=== PATIENT | male | born 1975 | race Caucasian/White ===

== ENCOUNTER 2024-07-07 16:00 | Inpatient (IN) | payer MEDICARE, OTHER ==
[~2024-07-07] VITALS: Ht 177.8 cm; Wt 111.6 kg
[~2024-07-07 16:00] MED LIST: AMLO10TA80 PO; ATOR40TA70 PO; CARV25TA47 PO; CLON0.1T PO; DIVA-75 PO; DOXA2TAB2 PO; HYDR100T11 PO; METF-414 PO; QUET300T20 PO
[2024-07-07] MEDS ORDERED: CLONIDINE 0.1MG TABLET PO PRN (23:00)
[2024-07-07] MEDS ORDERED: QUETIAPINE FUMARATE 50MG TABLET PO SCH ×2 (23:00→23:15)
[2024-07-07] MEDS ORDERED: ONDANSETRON HCL 4MG/2ML INJ IV PRN (23:00)
[2024-07-07] MEDS ORDERED: ACETAMINOPHEN 325MG TABLET PO PRN (23:00)
[2024-07-07] MEDS ORDERED: LORAZEPAM 0.5MG TABLET PO PRN (23:00)
[2024-07-07] MEDS ORDERED: NALOXONE HCL 0.4MG/ML VIAL IV PRN (23:15)
[2024-07-07] MEDS: QUETIAPINE FUMARATE 200MG TABLET PO SCH (23:16)
[2024-07-07] MEDS: PANTOPRAZOLE 40MG DR TABLET PO SCH (23:16)
[2024-07-08] MEDS: IPRATROPIUM/ALBUTEROL 0.5-3(2.5)MG/3ML NEB HHN SCH
[2024-07-08 06:45] LABS: CALCIUM 8.4 mg/dL (8.7-10.4)
[2024-07-08 06:48] LABS: BASOPHILS % 0.1 % (0.0-2.0); EOSINOPHILS % 0.1 % (0.0-5.0); HEMATOCRIT. 27.5 % (42.0-52.0); HEMOGLOBIN. 8.8 g/dL (14.0-18.0); LYMPHOCYTES % 8.8 % (20.0-50.0); MEAN CORPUSCULAR HEMOGLOBIN 28.5 pg (28.0-32.0); MEAN CORPUSCULAR HGB CONC 32.1 g/dL (31.0-37.0); MEAN CORPUSCULAR VOLUME 88.8 fL (80.0-94.0); MEAN PLATELET VOLUME 8.2 fl (7.4-10.4); MONOCYTES % 10.2 % (2.0-8.0); NEUTROPHILS % 80.8 % (40.0-76.0); PLATELET 229 x1000/uL (130-400); RED CELL DISTRIBUTION WIDTH 15.9 % (11.6-14.6)
[2024-07-08 06:51] LABS: CREATININE 2.8 mg/dL (0.6-1.3)
[2024-07-08] MEDS: DIVALPROEX SODIUM 500MG DR TABLET PO SCH (09:00)
[2024-07-08] MEDS: ATORVASTATIN CALCIUM 40MG TABLET PO SCH (09:00)
[2024-07-08] MEDS: PREDNISONE 20MG TABLET PO SCH (09:00)
[2024-07-08] MEDS: AMLODIPINE 10MG TABLET PO SCH (09:00)
[2024-07-08] MEDS: CARVEDILOL 12.5MG TABLET PO SCH (09:59)
[2024-07-08] MEDS: DOXAZOSIN MESYLATE 2MG TABLET PO SCH (09:59)
[2024-07-08] MEDS: CLONIDINE 0.1MG TABLET PO SCH (09:59)
[2024-07-08] MEDS: HYDRALAZINE HCL 100MG TABLET PO SCH (09:59)
[2024-07-08] MEDS: ENOXAPARIN 40MG/0.4ML SYR SUBCUT SCH (11:00)
[2024-07-08 12:38] VITALS: TEMP 36.78072
[2024-07-08 15:52] VITALS: PULSE 89; RESP 20; O2SAT 94
[2024-07-08] MEDS: HYDROCODONE/ACETAMINOPHEN 5/325MG TABLET PO PRN (15:55)
[2024-07-08 17:07] VITALS: BP 158/83; PULSE 87; RESP 20; O2SAT 98
== END 2024-07-08 20:52 | DRG 469 ==
LOC: ER 16:00 → 5WST 20:03
PROVIDERS: ADMIT Internal Medicine; ATTEND Internal Medicine
DX: N17.9 Acute kidney failure, unspecified (principal); J96.21 Acute and chronic respiratory failure with hypoxia; E11.22 Type 2 diabetes mellitus with diabetic chronic kidney disease; J44.1 Chronic obstructive pulmonary disease with (acute) exacerbation; D64.9 Anemia, unspecified; E87.5 Hyperkalemia; I12.9 Hypertensive chronic kidney disease with stage 1 through stage 4 chronic kidney disease, or unspecified chronic kidney disease; N18.9 Chronic kidney disease, unspecified; Z88.0 Allergy status to penicillin; Z91.199 Patient's noncompliance with other medical treatment and regimen due to unspecified reason; Z99.81 Dependence on supplemental oxygen; Z88.1 Allergy status to other antibiotic agents; Z72.0 Tobacco use
CPT/HCPCS: 36415; 80048; 85025; 94640; 99285; J1650; J7512